=== PATIENT | female | born 1985 | race Hispanic/Latino ===

== ENCOUNTER 2024-01-06 18:19 | Emergency (ER) | payer SELFPAY ==
[2024-01-06 18:37] VITALS: BP 97/83
[2024-01-06 19:26] LABS: COVID-19 Antigen Positive (Negative)
--- NOTE | 2024-01-06 19:59 | ED.GENMED ---
History of Present Illness
General
Chief Complaint: Cold/Flu/URI Symptoms
Source: patient and court interpreter (spouse)
Exam Limitations: none
Time Seen by Provider: 01/06/24 18:43
Travel History
Have you had any contact with someone who has COVID-19?: Yes
Comment: baby dx yesterday
Do you have any symptoms of coronavirus? Fever > 100 degrees, chills, cough, shortness of breath, sore throat, loss of taste or smell, muscle aches, or headache?: Yes
Symptoms:: Cough
History of Present Illness
History of Present Illness:
Patient to ED with complaint of fever, cough, sorethroat. SYmptoms started today. Patient was in ED last PM with her 9mos son who was diagnosed with COVID. Returns tonight with 9mo old son and 10 year old son and self, all with same symtpoms.
SHe states she took a cold a flu med last PM, nothing today,
Past History
Past History
ED Past Medical History: None
ED Past Surgical History: None
Review of Systems
Review of Systems
Allergies reviewed?: Yes
All Other Systems: ROS reviewed and negative except as documented in HPI and ROS
Constitutional: Reports fever and fatigue
EENT: Reports sore throat
Respiratory: Reports cough
Cardiac: Reports no symptoms
ABD/GI: Reports no symptoms
: Reports no symptoms
Musculoskeletal: Reports no symptoms
Skin: Reports no symptoms
Neurological: Reports no symptoms
Psychiatric: Reports no symptoms
Phy Exam
General Physical Exam
General Presentation: well appearing and no apparent distress
General age: appears stated age
General Skin: warm and dry
General Habitus: normal
General Mental: alert
ENT Exam
ENT Exam: EOMI, TM's normal, pharynx normal, neck supple, normocephalic and swallowing well
Cardiovascular Exam
Cardiovascular Exam: regular rate/rhythm
Pulmonary Exam
Pulmonary Exam: lungs clear, no respiratory distress and chest non tender
Neurological Exam
Neurological Exam: alert, oriented x3, CN II-XII intact, no motor deficits and normal gait
Musculoskeletal Exam
Musculoskeletal Exam: full ROM and neuro vasc intact
Skin Exam
Skin Exam: normal color, warm/dry and no rash
Psychiatric Exam
Psychiatric Exam: normal mood/affect
Course
Orders/Labs/Results
Orders:
Orders
01/06/24 18:50
COVID-19 Antigen Urgent
Source: Nasal Swab
01/06/24 19:52
Acetaminophen [Tylenol] 1,000 mg PO NOW STA
Abnormal Lab Results
01/06/24
18:50
SARS-CoV-2 Antigen Positive A
(Negative)
Vital Signs
Initial and Last Documented VS:
Initial Vital Signs
Temp Pulse Resp BP Pulse Ox
99.6 F 83 17 97/83 97
01/06/24 18:37 01/06/24 18:37 01/06/24 18:37 01/06/24 18:37 01/06/24 18:37
Last Documented Vital Signs
Temp Pulse Resp BP Pulse Ox
99.6 F 82 16 97/83 99
01/06/24 18:37 01/06/24 19:52 01/06/24 19:52 01/06/24 18:37 01/06/24 19:52
*Critical Care Note
Total Time (30-74mins, 75-104mins- exclusive of procedures): Not Applicable
Update Note
Update Note:
COVID pos. Patient and spouse aware. WIll continue to hydrate, take ibuprofen/tylenol as needed for fever/pain. Given instructions on s/s to return to ED and they are agreeable to plan.
ED Attending Note
-
Portions of this chart may have been created with voice recognition software.� Occasional wrong word or��sound alike� substitutions may have occurred due to the inherent limitations of voice recognition software.
Discharge Plan
Departure
Patient Disposition: Home (Routine Discharge)
Date of Disposition: 01/06/24
Time of Disposition: 20:54
Patient with high blood pressure during this ER visit?: No
Condition: Good
Covid-19: Confirmed COVID-19
Discharge Problem:
COVID-19
Instructions: Fever, Adult (DC), COVID-19 (DC), Coronavirus Home Quarantine
Referrals:
UNKNOWN - PT DOES,NOT KNOW [Family Provider] -
Stand Alone Forms: Return to Work
Activity Restrictions/Additional Instructions:
Follow up with your family doctor.
Interventions
Interventions:
*Risk Screen - Suicide Last Done: 01/06/24 18:37
*General Assessment Last Done: 01/06/24 18:37
*Neglect/Abuse Screening Last Done: 01/06/24 18:37
ED- Fall Risk Assessment Last Done: 01/06/24 19:31
*ED COVID-19 Vaccine History Last Done: 01/06/24 18:37
*Nursing Disposition Last Done: 01/06/24 20:55
ED- Pulmonary Assessment Last Done: 01/06/24 19:31
Discharge Date and Time
Discharge Date/Time: 01/06/24 20:57
Print Language: PORTUGUESE
[2024-01-06] MEDS: TYLENOL 1000 MG PO (20:02)
== END 2024-01-06 20:57 | disposition home or self-care (01) ==
LOC: EMR 18:19
PROVIDERS: Nurse Practitioner; EMERGENCY PHYSICIAN Emergency Medicine
DX: U07.1 COVID-19 (principal)
CPT/HCPCS: 99282; 87811

== ENCOUNTER 2024-09-23 17:45 | Emergency (ER) | payer SELFPAY ==
[2024-09-23 17:50] VITALS: BP 99/54
[2024-09-23 18:34] LABS: COVID-19 Antigen Negative (Negative)
--- NOTE | 2024-09-23 20:10 | ED.GENMED ---
History of Present Illness
General
Chief Complaint: Cold/Flu/URI Symptoms
Source: patient
Exam Limitations: none
Time Seen by Provider: 09/23/24 18:38
Nursing documentation reviewed up to this point in time: agreed with
History of Present Illness
History of Present Illness:
39-year-old female currently 4 weeks presenting to the emergency department today with concerns of a dry cough over the past 3 nights. Also has some nasal congestion no chest pain shortness of breath no fevers.
Past History
Past History
ED Past Medical History: None
ED Past Surgical History: None
Review of Systems
Review of Systems
Allergies reviewed?: Yes
All Other Systems: ROS reviewed and negative except as documented in HPI and ROS
Phy Exam
Physical Exam
Physical Exam:
GENERAL: Alert , in no apparent distress
EYE: pupils equal and reactive
NECK: Supple, no significant adenopathy.
ENT: Swollen boggy nasal turbinates, mild irritation to the posterior pharynx without significant swelling grossly patent airway uvula midline o/p clr, mmm.
CARDIAC: Regular rate and rhythm .
LUNGS: Clear breath sounds bilaterally, no acute respiratory distress, no wheezes/rales/rhonchi
ABDOMEN: Soft, without focal tenderness, no r/g, no cvat
NEUROLOGICAL: Alert and oriented, no focal neuro deficits
SKIN: Warm and dry, skin intact.
MUSCULOSKELETAL: No edema, well perfused.
PSYCH: Normal and appropriate interaction.
Course
Orders/Labs/Results
Orders:
Orders
09/23/24 18:00
COVID-19 Antigen Urgent
Source: Nasal Swab
Influenza A+B Rapid Molecular Urgent
JACKY Source: Nasal Swab
Specimen Description:
09/23/24 20:08
Acetaminophen [Tylenol] 1,000 mg PO NOW STA
Guaifenesin [Mucinex] 600 mg PO NOW STA
Vital Signs
Initial and Last Documented VS:
Initial Vital Signs
Temp Pulse Resp BP Pulse Ox
98.5 F 77 18 99/54 100
09/23/24 17:50 09/23/24 17:50 09/23/24 17:50 09/23/24 17:50 09/23/24 17:50
Last Documented Vital Signs
Temp Pulse Resp BP Pulse Ox
98.5 F 77 18 99/54 100
09/23/24 17:50 09/23/24 17:50 09/23/24 17:50 09/23/24 17:50 09/23/24 17:50
MDM/Problems Addressed
MDM/Problems Addressed:
39-year-old female currently 4 weeks presenting to the emergency department with symptoms consistent with upper respiratory syndrome. Vital signs are normal on arrival patient well-appearing no distress tolerating secretions with a mild
hacking cough otherwise lungs are clear. Plan for symptomatic treatment. Return precautions given. All instructions through language line
*Critical Care Note
Total Time (30-74mins, 75-104mins- exclusive of procedures): Not Applicable
ED Attending Note
-
Portions of this chart may have been created with voice recognition software.� Occasional wrong word or��sound alike� substitutions may have occurred due to the inherent limitations of voice recognition software.
Discharge Plan
Departure
Patient Disposition: Home (Routine Discharge)
Date of Disposition: 09/23/24
Time of Disposition: 20:12
Patient with high blood pressure during this ER visit?: No
Condition: Good
Covid-19: Not Applicable
Discharge Problem:
Acute bronchitis
Instructions: Acute Bronchitis, Adult (DC)
Prescriptions:
New
guaifenesin [Mucinex] 600 mg tablet extended release 12hr
600 mg PO Q12H PRN (Reason: Cough) Qty: 14 0RF
acetaminophen 500 mg capsule
500 mg PO Q6H PRN (Reason: Pain) Qty: 14 0RF
Referrals:
NONE,* [Family Provider] -
Activity Restrictions/Additional Instructions:
You came to the emergency department today with concerns of upper respiratory symptoms. Please take the prescribed medications and stay hydrated and follow-up closely with the primary care doctor. Return to the emergency department any worsening,
new or concerning symptoms.
Interventions
Interventions:
*Risk Screen - Suicide Last Done: 09/23/24 17:50
*General Assessment Last Done: 09/23/24 17:50
*Neglect/Abuse Screening Last Done: 09/23/24 17:50
ED- Fall Risk Assessment Last Done: 09/23/24 18:21
*ED COVID-19 Vaccine History Last Done: 09/23/24 17:50
ED- Pulmonary Assessment Last Done: 09/23/24 18:21
Discharge Date and Time
Print Language: SWEDISH
[2024-09-23] MEDS: TYLENOL 1000 MG PO (20:21)
[2024-09-23] MEDS: MUCINEX 600 MG PO (20:22)
== END 2024-09-23 20:25 | disposition home or self-care (01) ==
LOC: EMR 17:45
PROVIDERS: Emergency Medicine; EMERGENCY PHYSICIAN Emergency Medicine
DX: O99.511 Diseases of the respiratory system complicating pregnancy, first trimester (principal); J20.9 Acute bronchitis, unspecified; Z3A.01 Less than 8 weeks gestation of pregnancy
CPT/HCPCS: 99282; 87502; 87811